=== PATIENT | male | born 1995 | race American Indian/Alaskan Native ===

== ENCOUNTER 2020-01-17 20:47 | Emergency (ER) | payer OTHER ==
[2020-01-17] MEDS ORDERED: FAMOTIDINE 20 MG/2 ML INJ IV ONE (21:09)
[2020-01-17] MEDS ORDERED: ONDANSETRON 4 MG/2 ML INJ IV ONE (21:09)
[2020-01-17] MEDS ORDERED: SODIUM CHLORIDE 0.9% 1000 ML 1,000 ML IV ONE (21:09)
[2020-01-17 21:22] LABS: Basophils % (Auto) 0.6 % (0.0-1.8); Eosinophils # (Auto) 0.1 K/mm3 (0.0-0.4); Eosinophils % (Auto) 0.8 % (0.0-4.3); Hematocrit 44.2 % (35.5-45.6); Hemoglobin 15.4 gm/dl (11.8-15.2); Lymphocytes # (Auto) 2.4 K/mm3 (1.2-5.4); Lymphocytes % (Auto) 28.6 % (13.4-35.0); Mean Corpuscular HGB Conc 35 % (32-34); Mean Corpuscular Volume 95 fl (84-94); Monocytes % (Auto) 11.3 % (0.0-7.3); Platelet Count 223 K/mm3 (140-440); Red Blood Count 4.68 M/mm3 (3.65-5.03); Red Cell Distribution Width 13.1 % (13.2-15.2)
[2020-01-17 21:47] LABS: Albumin 4.6 g/dL (3.9-5); BUN/Creatinine Ratio 11; Blood Urea Nitrogen 10 mg/dL (9-20); Calcium 9.7 mg/dL (8.4-10.2); Hemolysis Index 122
--- NOTE | 2020-01-17 21:51 | XRay Report ---
ABDOMEN 1 VIEW INDICATION / CLINICAL INFORMATION: epigastric pain. COMPARISON: None available. FINDINGS: TUBES / LINES: None. Metallic foreign body projecting over the left iliac fossa represents a part of the patient's clothing. BOWEL GAS PATTERN: Small volume of gas in the stomach, which is not abnormally distended. Otherwise, there is very little small bowel gas. Gas in small volume of fecal material are seen at the rectum. FREE AIR / EXTRALUMINAL GAS: None seen. ADDITIONAL FINDINGS: No appreciable abdominal mass lesion or abnormal calcifications. IMPRESSION: 1. No significant abnormality. Signer Name: Dheeraj Koch MD Signed: 01/17/2020 9:47 PM Workstation Name: [id number]
[2020-01-17 22:08] LABS: Alanine Aminotransferase 17 units/L (7-56)
[2020-01-17 22:41] VITALS: BP 119/81
--- NOTE | 2020-01-17 23:15 | Emergency Department Report ---
ED Abdominal Pain HPI - General Chief Complaint: Weakness Stated Complaint: WEAKNESS Time Seen by Provider: 01/17/20 21:09 Source: EMS Mode of arrival: Stretcher Limitations: No Limitations - History of Present Illness Initial Comments: Patient is a 24-year-old F [place] male who is coming from [facility] for nausea vomiting. Patient states that he was in [place] for anxiety issues. Patient states that for the past 5 days he has been unable to keep down any solid foods. States he has had several episodes of nausea and vomiting. Worse episodes were today. Patient states he has some epigastric abdominal pain anytime he eats food. Can drink water and keep it down. Patient currently is having no pain as the pain is only present when he eats he also denies any current nausea or diarrhea or fever. He denies cough cold or congestion as well. Severity scale (0 -10): 0 - Related Data Previous Rx's Medication Instructions Recorded Last Taken Type Dicyclomine [Bentyl] 20 mg PO QID #10 tablet 01/17/20 Unknown Rx Ondansetron [Zofran Odt] 4 mg PO Q8HR #10 tab.rapdis 01/17/20 Unknown Rx Pantoprazole [Protonix] 40 mg PO QDAY #30 tablet 01/17/20 Unknown Rx Allergies Allergy/AdvReac Type Severity Reaction Status Date / Time No Known Allergies Allergy Unverified 01/17/20 20:55 ED Review of Systems ROS: Stated complaint: WEAKNESS Other details as noted in HPI Comment: All other systems reviewed and negative ED Past Medical Hx - Past Medical History Previous Medical History?: No - Surgical History Past Surgical History?: No - Social History Smoking Status: Never Smoker Substance Use Type: Marijuana - Medications Home Medications: Home Medications Medication Instructions Recorded Confirmed Last Taken Type Dicyclomine [Bentyl] 20 mg PO QID #10 tablet 01/17/20 Unknown Rx Ondansetron [Zofran Odt] 4 mg PO Q8HR #10 tab.rapdis 01/17/20 Unknown Rx Pantoprazole [Protonix] 40 mg PO QDAY #30 tablet 01/17/20 Unknown Rx ED Physical Exam - General Limitations: No Limitations General appearance: alert, in no apparent distress - Head Head exam: Present: atraumatic, normocephalic - Eye Eye exam: Present: normal appearance, PERRL, EOMI - ENT ENT exam: Present: mucous membranes moist - Neck Neck exam: Present: normal inspection - Respiratory Respiratory exam: Present: normal lung sounds bilaterally. Absent: respiratory distress, wheezes, rales, rhonchi - Cardiovascular Cardiovascular Exam: Present: regular rate, normal rhythm, normal heart sounds. Absent: systolic murmur, diastolic murmur, rubs, gallop - GI/Abdominal GI/Abdominal exam: Present: soft, tenderness (epigastric), normal bowel sounds. Absent: distended, guarding, rebound - Rectal Rectal exam: Present: deferred - Extremities Exam Extremities exam: Present: normal inspection - Back Exam Back exam: Present: normal inspection - Neurological Exam Neurological exam: Present: alert, oriented X3 - Psychiatric Psychiatric exam: Present: normal affect, normal mood - Skin Skin exam: Present: warm, dry, intact, normal color. Absent: rash ED Course Vital Signs 01/17/20 01/17/20 01/17/20 20:51 20:53 21:08 Temperature 99.6 F 99.6 F Pulse Rate 61 61 69 Respiratory 16 16 Rate Blood Pressure 125/66 Blood Pressure 125/66 [Right] O2 Sat by Pulse 98 98 96 Oximetry 01/17/20 01/17/20 21:09 22:40 Temperature 98.6 F Pulse Rate 63 Respiratory 18 Rate Blood Pressure 119/81 Blood Pressure [Right] O2 Sat by Pulse 97 Oximetry ED Medical Decision Making - Lab Data Result diagrams: 01/17/20 21:12 01/17/20 21:12 Lab Results 01/17/20 01/17/20 Range/Units 21:12 21:12 WBC 8.4 (4.5-11.0) K/mm3 RBC 4.68 (3.65-5.03) M/mm3 Hgb 15.4 H (11.8-15.2) gm/dl Hct 44.2 (35.5-45.6) % MCV 95 H (84-94) fl MCH 33 H (28-32) pg MCHC 35 H (32-34) % RDW 13.1 L (13.2-15.2) % Plt Count 223 (140-440) K/mm3 Lymph % (Auto) 28.6 (13.4-35.0) % [place] % (Auto) 11.3 H (0.0-7.3) % Eos % (Auto) 0.8 (0.0-4.3) % Baso % (Auto) 0.6 (0.0-1.8) % Lymph # 2.4 (1.2-5.4) K/mm3 [place] # 1.0 H (0.0-0.8) K/mm3 Eos # 0.1 (0.0-0.4) K/mm3 Baso # 0.0 (0.0-0.1) K/mm3 Seg Neutrophils % 58.7 (40.0-70.0) % Seg Neutrophils # 4.9 (1.8-7.7) K/mm3 Sodium 138 (137-145) mmol/L Potassium 4.4 (3.6-5.0) mmol/L Chloride 97.7 L (98-107) mmol/L Carbon Dioxide 24 (22-30) mmol/L Anion Gap 21 mmol/L BUN 10 (9-20) mg/dL Creatinine 0.9 (0.8-1.5) mg/dL Estimated GFR > 60 ml/min BUN/Creatinine Ratio 11 % Glucose 91 (75-100) mg/dL Calcium 9.7 (8.4-10.2) mg/dL Total Bilirubin 0.60 (0.1-1.2) mg/dL AST 29 (5-40) units/L ALT 17 (7-56) units/L Alkaline Phosphatase 56 (35-129) units/L Total Protein 8.3 H (6.3-8.2) g/dL Albumin 4.6 (3.9-5) g/dL Albumin/Globulin Ratio 1.2 % Lipase 25 (13-60) units/L - Radiology Data KUB is within normal limits and shows no evidence of any free air - Medical Decision Making Patient has a remote history of ulcers according to the patient. Patient likely with exacerbation of the gastritis or peptic ulcer disease. Laboratory studies within normal limits. There is no evidence of any ulcer rupture on x-ray. Patient will be restarted on medications for symptomatic relief will be discharged home to follow-up with GI. Critical care attestation.: If time is entered above; I have spent that time in minutes in the direct care of this critically ill patient, excluding procedure time. ED Disposition Clinical Impression: PUD (peptic ulcer disease), Acute abdominal pain Disposition: TO HOME OR SELFCARE Is pt being admited?: No Does the pt Need Aspirin: No Condition: Stable Instructions: Peptic Ulcer (ED), Gastritis (ED), Diet for Ulcers and Gastritis (ED) Referrals: [facility] [Provider Group] - 3-5 Days Time of Disposition: 23:15
== END 2020-01-18 01:00 | disposition home or self-care (01) ==
LOC: ED 20:47
DX: K27.9 Peptic ulcer, site unspecified, unspecified as acute or chronic, without hemorrhage or perforation (principal); F12.10 Cannabis abuse, uncomplicated
CPT/HCPCS: 36415; 74018; 80053; 83690; 85025; 96361; 96374; 96375; 99284; J2405; J7030